=== PATIENT | female | born 1955 | race Asian ===

== ENCOUNTER 2017-09-09 12:55 | Outpatient (CLI) | payer OTHER ==
--- NOTE | 2017-09-10 09:13 | XRAY Report ---
EXAM: THREE VIEW RIGHT KNEE: 09/09/2017 CLINICAL INDICATION: Pain. FINDINGS: AP, lateral, sunrise views of the right knee demonstrate mild osteoarthritis, with small osteophytes. There is no evidence of acute fracture or dislocation. No effusion is present. IMPRESSION: MILD RIGHT KNEE OSTEOARTHRITIS. TD: 09/09/2017 16:20 [facility]
== END 2017-09-09 12:56 | disposition home or self-care (01) ==
LOC: DI 12:55
PROVIDERS: ATTEND Physician Assistant Medical
DX: M17.11 Unilateral primary osteoarthritis, right knee (principal)

== ENCOUNTER 2017-09-11 19:01 | Outpatient (CLI) | payer OTHER ==
--- NOTE | 2017-09-12 11:31 | Ultrasound Report ---
DATE OF SERVICE: 09/11/2017 Physician: Jerry Gutierrez MD PELVIC ULTRASOUND: 09/11/2017 CLINICAL INDICATION: Pelvic pain. TECHNIQUE: Transabdominal pelvic ultrasound performed for global evaluation. Transvaginal pelvic ultrasound performed for detailed evaluation. Real-time scanning performed and static images obtained. FINDINGS: The uterus is anteverted, measuring 4.7 x 3.3 x 2.9 cm. The endometrial echo complex measures 4 mm. No focal myometrial lesion is seen. The ovaries are normal, with the right measuring 1.0 x 0.7 x 0.5 cm, and the left measuring 1.0 x 0.8 x 0.8 cm. No free fluid is present. IMPRESSION: NORMAL PELVIC ULTRASOUND. TD: 09/12/2017 12:26 MTDD
== END 2017-09-11 19:02 | disposition home or self-care (01) ==
LOC: DI 19:01
PROVIDERS: ATTEND Physician Assistant Medical
DX: R10.2 Pelvic and perineal pain (principal)
CPT/HCPCS: 76830; 76856

== ENCOUNTER 2017-09-30 13:33 | Outpatient (CLI) | payer OTHER ==
--- NOTE | 2017-10-02 15:47 | DEXA Report ---
DEXA SCAN: 09/30/2017 TECHNIQUE: Dual energy x-ray absorptiometry (DXA) was performed on a [employer] system. Regions measured are the AP spine, femoral neck, and, if needed, forearm. COMPARISON: None. In accordance with the International Society for Clinical Densitometry (ISCD) guidelines, data from previous exams may be reanalyzed using current recommendations and techniques. This is done to allow a more accurate basis for comparison with the current study. FINDINGS The data for the lumbar spine is as follows: REGION BMD (g/cm/cm) T-SCORE Z-SCORE L1 0.934 -1.6 0.0 L2 0.957 -2.0 -0.4 L3 1.082 -1.0 0.6 L4 1.302 0.8 2.5 TOTAL L1-L4 1.099 -0.7 0.9 NOTE: All evaluable vertebrae are used for classification. The data for the hip is as follows: REGION BMD (g/cm/cm) T-SCORE Z-SCORE Neck 0.689 -2.5 -1.0 TOTAL 0.793 -1.7 -0.5 NOTE: The femoral neck or total proximal femur, whichever is lowest, is used for classification. IMPRESSION THE WHO CLASSIFICATION BASED ON THE INTERNATIONAL REFERENCE STANDARD IS OSTEOPOROSIS (REFERENCE LEFT FEMORAL NECK). THE FRACTURE RISK IS HIGH. RECOMMENDATION: Patients with diagnosis of osteoporosis or osteopenia should have regular bone mineral density assessment. For those eligible for Medicare, routine testing is allowed once every 2 years. Testing frequency can be increased for patients who have rapidly progressing disease or for those who are receiving medical therapy to restore bone mass. COMMENT: World Health Organization (WHO) definitions for osteoporosis and osteopenia: NORMAL BMD: T-score at 1.0 or higher, fracture risk is low. OSTEOPENIA BMD: T-score between 1.0 and -2.5, fracture risk is increased. OSTEOPOROSIS BMD: T-score at 2.5 or lower, fracture risk high. National Osteoporosis Foundation recommends: 1. Obtain adequate dietary calcium (at least 1200 mg per day) and vitamin D (400 -800 international units per day). 2. Participate, as appropriate, in regular weightbearing and muscle- strengthening exercise. 3. Avoid tobacco use and reduce alcohol and caffeine intake. 4. For more detailed information see the website at www.NOF.org. TD: 09/30/2017 16:39 RAMÓN
== END 2017-09-30 13:34 | disposition home or self-care (01) ==
LOC: DI 13:33
PROVIDERS: ATTEND Physician Assistant Medical
DX: Z13.820 Encounter for screening for osteoporosis (principal); M81.0 Age-related osteoporosis without current pathological fracture
CPT/HCPCS: 77080

== ENCOUNTER 2017-10-09 08:00 | Outpatient (CLI) | payer OTHER | END 2017-10-09 08:01 | disposition home or self-care (01) | LOC: LAB.R 08:00 | PROVIDERS: ATTEND Registered Nurse | DX: N76.0 Acute vaginitis (principal) | CPT/HCPCS: 87070; 87491; 87591 ==

== ENCOUNTER 2018-11-03 13:15 | Outpatient (CLI) | payer OTHER ==
--- NOTE | 2018-11-03 17:15 | Mammography Report ---
Reason: SCREENING Procedure Date: 11/03/2018 Accession Number: [id number] / [id number] Procedure: MGN - Screening Mammo Dig Bilat CPT Code: FULL RESULT: EXAM: Screening Mammo Dig Bilat DATE: 11/03/2018 1:30 PM CLINICAL HISTORY: Routine screening TECHNIQUE: Bilateral CC and MLO views were obtained. COMPARISON: 12/23/2015, 12/21/2015, 04/21/2014 FINDINGS: The breast tissue is heterogeneously dense. No suspicious masses, clustered microcalcifications, or regions of architectural distortion are identified. A few punctate calcifications are stable. IMPRESSION: Benign findings RECOMMENDATION: Routine annual screening unless otherwise clinically indicated. BIRADS CATEGORY 2: Benign findings STANDARD QUALIFYING STATEMENTS: 1. This examination was reviewed with the aid of Computer-Aided Detection (CAD). 2. A negative or benign imaging report should not delay biopsy if clinically suspicious findings are present. Consider surgical consultation if warrented. More than 5% of cancers are not identified by imaging. 3. Dense breasts may obscure an underlying neoplasm.
== END 2018-11-03 13:16 | disposition home or self-care (01) ==
LOC: DI.N 13:15
DX: Z12.31 Encounter for screening mammogram for malignant neoplasm of breast (principal)
CPT/HCPCS: 77067

== ENCOUNTER 2019-01-20 10:08 | Outpatient (CLI) | payer OTHER | END 2019-01-20 10:09 | disposition home or self-care (01) | LOC: RT 10:08 | PROVIDERS: ATTEND Obstetrics & Gynecology | DX: Z01.812 Encounter for preprocedural laboratory examination (principal); N87.0 Mild cervical dysplasia; N89.5 Stricture and atresia of vagina; N95.2 Postmenopausal atrophic vaginitis | CPT/HCPCS: 93005 ==

== ENCOUNTER 2019-01-21 11:06 | Day surgery (SDC) | payer OTHER ==
[2019-01-21] MEDS ORDERED: LACTATED RINGERS 1,000 ML IV ONE (11:38)
--- NOTE | 2019-01-21 12:00 | ANESTHESIA ---
Pre-Anesthesia VS, & Labs - Diagnosis cervical dysplasia, SHERRY I - Procedure LEEP Vital Signs: Temp Pulse Resp BP Pulse Ox 36.0 C L 53 L 15 179/80 H 100 01/21/19 11:20 01/21/19 11:20 01/21/19 11:20 01/21/19 11:20 01/21/19 11:20 Height 4 ft 10 in Weight (kg) 53 kg Body Mass Index 24.3 - NPO >8 hours - Is Patient ?: No Home Medications and Allergies Home Medications: Ambulatory Orders Calcium Citrate/Vitamin D3 [Calcium Cit 200-Vit D3 250 Tab] 1 each PO DAILY 01/20/19 Cholecalciferol (Vitamin D3) [Vitamin D3] 1,000 unit PO DAILY 01/20/19 Estradiol [Estrace] 1 gm VG ONCE 01/20/19 [place]-3/Dha/Epa/Fish Oil [Fish Oil 1,000 mg Softgel] 1 each PO DAILY 01/20/19 Losartan Potassium 50 mg PO BID 12/04/17 Multivitamin [Multivitamins] 1 each PO DAILY 12/04/17 Calcium Citrate/Vitamin D3 [Calcium Cit 200-Vit D3 250 Tab] 1 each PO DAILY 01/20/19 Cholecalciferol (Vitamin D3) [Vitamin D3] 1,000 unit PO DAILY 01/20/19 Estradiol [Estrace] 1 gm VG ONCE 01/20/19 [place]-3/Dha/Epa/Fish Oil [Fish Oil 1,000 mg Softgel] 1 each PO DAILY 01/20/19 Allergies/Adverse Reactions: Allergies Allergy/AdvReac Type Severity Reaction Status Date / Time alendronate sodium Allergy muscle Verified 01/21/19 11:40 [From Fosamax] pain and swelling Anes History & Medical History - Anesthetic History Anesthesia Complications: reports: No previous complications - Medical History Cardiovascular: reports: Hypertension Pulmonary: reports: None Gastrointestinal: reports: None Urinary: reports: None Neuro: reports: None Musculoskeletal: reports: Osteoarthritis Endocrine/Autoimmune: reports: None Blood Disorders: reports: None Skin: reports: None Smoking Status: Never smoker Psychosocial: reports: No issues indicated - Surgical History Gynecologic: Other (breast biopsy) Orthopedic: Other (Armaan ORIF forearms) Exam General: Alert, Oriented x3, Cooperative, No acute distress Dental: Dentures full Upper Mouth Openin Fingerbreadth Neck Mobility: Normal Mallampati classification: I Thyromental Distance: 4-6 cm Respiratory: Lungs clear, Normal breath sounds, No respiratory distress, No accessory muscle use Cardiovascular: Regular rate, Normal S1, Normal S2, No murmurs Mental/Cognitive Status: Alert/Oriented X3, Normal for patient Plan Anesthesia Type: General Consent for Procedure(s) Verified and Reviewed: Yes Code Status: Attempt Resuscitation ASA classification: 2-Mild systemic disease Is this case an emergency?: No
[2019-01-21] MEDS ORDERED: BUPIVACAINE 0.5%-EPI 1:200000 PF 30 ML VIAL ONE (13:19)
[2019-01-21] MEDS ORDERED: KETOROLAC 30 MG/ML VIAL IVP ONE (14:02)
[2019-01-21] MEDS ORDERED: ONDANSETRON 4 MG/2 ML VIAL IVP ONE (14:02)
[2019-01-21] MEDS ORDERED: PROPOFOL 200 MG/20 ML VIAL IVP ONE (14:02)
[2019-01-21] MEDS ORDERED: fentaNYL 100 MCG/2 ML VIAL IVP ONE (14:02)
[2019-01-21] MEDS ORDERED: MIDAZOLAM 2 MG/2 ML VIAL IVP ONE (14:02)
[2019-01-21] MEDS ORDERED: diphenhydrAMINE INJ 50 MG/ML VIAL IVP ONE (14:02)
[2019-01-21] MEDS ORDERED: ONDANSETRON 4 MG/2 ML VIAL IVP PRN (14:52)
[2019-01-21] MEDS ORDERED: oxyCODONE 5 MG TABLET PO PRN (14:52)
[2019-01-21] MEDS ORDERED: HYDROmorphone 0.5 MG/0.5 ML SYRINGE IVP PRN (14:52)
--- NOTE | 2019-01-21 14:55 | Discharge Plan ---
Discharge Plan Disposition: 01 Home, Self Care Condition: Good Diet: Regular Activity Restrictions: Nothing in the vagina Shower Restrictions: No Driving Restrictions: Yes (Not for 24 hours) Additional Instructions or Follow Up instructions: Nothing in the vagina for 4 weeks Take it easy today. OK to work after you've been awake for 24 hours. Call the clinic to speak with the nurse or with the doctor after hours if you have... --Bleeding soaking through a pad or more an hour for 4 hours. --Fevers, increasing pain, foul discharge Expect... --Light bleeding --Soreness at the vaginal opening --Discharge that looks black and clumpy No Smoking: If you smoke, Please STOP! Call for help. Follow-up with: Brittany Bobby MD [Provider Admit Priv/Credential] -
--- NOTE | 2019-01-21 14:58 | OPERATIVE REPORT ---
Operative Report - General Procedure Date: 01/21/19 Planned Procedure: LEEP Pre-Op Diagnosis: Cervical dysplasia Procedure Performed: LEEP Post Op Diagnosis: cervical dysplasia - Procedure Note Primary Surgeon: Kanu Secondary Surgeon: jethro Anesthesia Technique: General LMA Pathology: LEEP, LEEP right, endocervical curettage IV Fluids (mL): 600 Estimated Blood Loss (mL): 20 Urine Output (mL): 0 Findings: cervix adherent to vaginal sidewalls Complications: none
[2019-01-21 15:37] VITALS: BP 147/80
--- NOTE | 2019-01-21 16:02 | OPERATIVE REPORT ---
DATE OF SERVICE: 01/21/2019 Physician: Brittany Bobby MD PREOPERATIVE DIAGNOSES 1. Cervical dysplasia. 2. CIN1, endocervical curettage. 3. Unsatisfactory colposcopy. 4. Vaginal adhesions to the cervix. 5. Atrophic vaginitis. POSTOPERATIVE DIAGNOSES 1. Cervical dysplasia. 2. CIN1, endocervical curettage. 3. Unsatisfactory colposcopy. PROCEDURE PERFORMED: LEEP excision of the cervix. SURGEON: Brittany Bobby MD SEA[employer]OD SERVICE TEAM MEMBER: None. ANESTHESIA: General. ESTIMATED BLOOD LOSS: 20 mL INTRAVENOUS FLUIDS: 600 mL URINE OUTPUT: None. COUNTS: Correct x2. COMPLICATIONS: None apparent. DISPOSITION: Stable to recovery room. PROPHYLAXIS: Sequential compression devices and MINI hose to the bilateral lower extremities. No ant ibiotics indicated. FINDINGS: The cervix was flush with the vagina with adhesions from the patient's right vagina to the cervix. The cervical os was displaced to the patient's left. DESCRIPTION OF PROCEDURE: The patient was brought to the operating room, where she was induced with general anesthesia. The procedure was performed in the operating room due to her distorted anatomy a nd a history of prior excisional procedures. Bimanual examination revealed an axial uterus. Ultraso und confirmed an axial uterus and then axial cervical orientation. A coated speculum was placed. Th e cervix was difficult to identify because it is flush with the vaginal mccann. The cervical os was f ound with very small cervical dilator. A tenaculum could not be applied due to the flush nature of t he cervix. Using the speculum to fix the cervix as cranially as possible to limit cervical motion, a n intracervical and paracervical block were performed. Marcaine 0.5% 10 mL with epinephrine were use d for both of these. The 1 x 1 cm loop electrode was chosen. On a cut setting of 40, the loop was i nserted through the cervical tissue, dragged across the os and then removed inferiorly. A good whole specimen was sent to pathology and this did contain the cervical os. The patient had some more cerv ical tissue on the patient's right-hand side. This was confirmed with pickups and placed on the firm er cervical tissue. A second pass with a small electrode was performed on the right side of the cerv ix. An endocervical curettage was performed. Hemostasis was achieved with a rollerball on coagulati on. Monsel's was applied. Digital exam postprocedure confirmed the absence of lacerations of the va karen or inadvertent entry into the peritoneal cavity. Good excision of the cervix was confirmed fermín fuentes. TD: 01/21/2019 15:18
== END 2019-01-21 11:07 | disposition home or self-care (01) ==
LOC: SDS 11:06
PROVIDERS: ATTEND Obstetrics & Gynecology
PROC: 0UBC7ZX Excision of Cervix, Via Natural or Artificial Opening, Diagnostic (ICD-10-PCS; principal; 2019-01-21 13:30)
DX: N87.0 Mild cervical dysplasia (principal); N95.2 Postmenopausal atrophic vaginitis; I10 Essential (primary) hypertension; M85.80 Other specified disorders of bone density and structure, unspecified site
CPT/HCPCS: 57522; J1200; J7120

== ENCOUNTER 2019-04-22 | Outpatient (CLI) | payer OTHER | END 2019-04-22 11:05 | disposition home or self-care (01) | DX: M85.88 Other specified disorders of bone density and structure, other site (principal) | CPT/HCPCS: 77080 ==

== ENCOUNTER 2019-10-01 13:27 | Emergency (ER) | payer OTHER ==
[2019-10-01 13:36] VITALS: BP 149/74
--- NOTE | 2019-10-01 13:47 | ED Physician Documentation ---
PD HPI URI - Stated complaint Stated Complaint: COLD/COUGH - Chief complaint Chief Complaint: Resp - History obtained from History obtained from: Patient - History of Present Illness Timing - onset: How many weeks ago (2) Timing duration: Weeks (2) Timing details: Gradual onset Pain level max: 0 Pain level now: 0 Associated symptoms: Nasal congestion, Rhinorrhea, Dry cough. No: Fever, Chills, Sore throat, Chest pain, NVD Contributing factors: Sick contact Improves by: Rest Worsened by: Activity, Breathing Review of Systems Constitutional: denies: Fever, Chills GI: denies: Vomiting, Diarrhea Skin: denies: Rash Musculoskeletal: denies: Neck pain, Back pain Neurologic: denies: Headache PD PAST MEDICAL HISTORY - Past Medical History Cardiovascular: Hypertension Respiratory: None Neuro: None Endocrine/Autoimmune: None GI: None : None HEENT: Chronic vision loss Psych: None Musculoskeletal: Osteoarthritis Derm: None - Past Surgical History Ortho: Other (Armaan ORIF forearms) /MANAGER SOLAR: Other (breast biopsy) - Present Medications Home Medications: Ambulatory Orders Medication Instructions Recorded Confirmed Losartan Potassium 50 mg PO BID 12/04/17 01/21/19 Multivitamin [Multivitamins] 1 each PO DAILY 12/04/17 01/21/19 Calcium Citrate/Vitamin D3 1 each PO DAILY 01/20/19 01/21/19 [Calcium Cit 200-Vit D3 250 Tab] Cholecalciferol (Vitamin D3) 1,000 unit PO DAILY 01/20/19 01/21/19 [Vitamin D3] Estradiol [Estrace] 1 gm VG ONCE 01/20/19 01/21/19 [place]-3/Dha/Epa/Fish Oil [Fish Oil 1 each PO DAILY 01/20/19 01/21/19 1,000 mg Softgel] Benzonatate [Tessalon Perle] 100 - 200 mg PO TID PRN #30 capsule 10/01/19 - Allergies Allergies/Adverse Reactions: Allergies Allergy/AdvReac Type Severity Reaction Status Date / Time alendronate sodium Allergy muscle Verified 10/01/19 13:36 [From Fosamax] pain and swelling - Social History Smoking Status: Never smoker PD ED PE NORMAL - Vitals Vital signs reviewed: Yes - General General: Alert and oriented X 3, No acute distress, Well developed/nourished - HEENT HEENT: PERRL, Ears normal, Moist mucous membranes, Pharynx benign - Neck Neck: Supple, no meningeal sign - Cardiac Cardiac: RRR, Strong equal pulses - Respiratory Respiratory: No respiratory distress, Clear bilaterally - Abdomen Abdomen: Soft, Non tender, Non distended - Derm Derm: Warm and dry, No rash - Neuro Neuro: Alert and oriented X 3 - Psych Psych: Normal mood, Normal affect Results - Vitals Vitals: Vital Signs - 24 hr 10/01/19 13:32 Temperature 37.5 C Heart Rate 56 L Respiratory 18 Rate Blood Pressure 149/74 H O2 Saturation 97 Oxygen O2 Source Room air PD MEDICAL DECISION MAKING - ED course Complexity details: considered differential, d/w patient, d/w family ED course: Patient is well-appearing, nontoxic. Afebrile. No hypoxia. She appears to have a viral upper respiratory infection. No fevers. Lungs are clear to auscultation bilaterally. No evidence of pneumonia. We will continue supportive care and have her follow-up with her doctor. Patient and family counseled regarding signs and symptoms for which I believe and urgent re- evaluation would be necessary. Patient with good understanding of and agreement to plan and is comfortable going home at this time This document was made in part using voice recognition software. While efforts are made to proofread this document, sound alike and grammatical errors may occur. Departure - Departure Disposition: 01 Home, Self Care Clinical Impression: Upper respiratory tract infection Qualifiers: URI type: unspecified viral URI Qualified Code(s): J06.9 - Acute upper respiratory infection, unspecified Condition: Good Instructions: ED URI Viral Follow-Up: your,doctor in 1 week [Other] Prescriptions: Benzonatate [Tessalon Perle] 100 - 200 mg PO TID PRN #30 capsule PRN Reason: Cough Comments: Drink plenty fluids. Return if you worsen. This should improve over the next week.
== END 2019-10-01 13:50 | disposition home or self-care (01) ==
LOC: ED 13:27
DX: J06.9 Acute upper respiratory infection, unspecified (principal); I10 Essential (primary) hypertension; Z79.899 Other long term (current) drug therapy
CPT/HCPCS: 99282; 99284

== ENCOUNTER 2020-09-17 11:24 | Emergency (ER) | payer OTHER ==
[2020-09-17 11:30] VITALS: BP 148/75
--- NOTE | 2020-09-17 13:28 | ED Physician Documentation ---
History of Present Illness - Stated complaint Stated Complaint: FACE SWELLING - Chief complaint Chief Complaint: General - History obtained from History obtained from: Patient - Additonal information Additional information: 65-year-old female presents the emergency department for evaluation of bilateral periorbital facial swelling that she noticed 2 mornings ago when she woke up. There is mild erythema. Some pruritus but no pain. No fevers. No difficulty with swallow. No trismus. No tongue or lip swelling. No cough or congestion. denies excessive tearing, matting on her lashes in the am, vision changes. She has taken Benadryl and it does reduce the swelling for short time before it returns again. She denies any new soaps lotions or products. She does use an [id number] face wash and is use the same brand for many years. No history of similar. PMH: hypertension Meds: Losartan Review of Systems Constitutional: reports: Reviewed and negative Eyes: reports: Other (Bilateral periorbital facial swelling) Ears: reports: Reviewed and negative Nose: reports: Reviewed and negative Throat: denies: Oral lesions / sores, Sore throat, Swollen tonsils, Swallowed foreign body Cardiac: denies: Chest pain / pressure, Palpitations, Pedal edema Respiratory: denies: Dyspnea, Cough, Hemoptysis GI: denies: Abdominal Pain, Abdominal Swelling, Nausea : reports: Reviewed and negative Skin: reports: Reviewed and negative Musculoskeletal: reports: Reviewed and negative PD PAST MEDICAL HISTORY - Past Medical History Past Medical History: Yes Cardiovascular: Hypertension Respiratory: None Neuro: None Endocrine/Autoimmune: None GI: None SUPERVISOR TITLE: None : None HEENT: Chronic vision loss Psych: None Musculoskeletal: Osteoarthritis Derm: None - Past Surgical History Past Surgical History: Yes Ortho: Other /SUPERVISOR TITLE: Other - Present Medications Home Medications: Ambulatory Orders Medication Instructions Recorded Confirmed Losartan Potassium 50 mg PO BID 12/04/17 01/21/19 Multivitamin [Multivitamins] 1 each PO DAILY 12/04/17 01/21/19 Calcium Citrate/Vitamin D3 1 each PO DAILY 01/20/19 01/21/19 [Calcium Cit 200-Vit D3 250 Tab] Cholecalciferol (Vitamin D3) 1,000 unit PO DAILY 01/20/19 01/21/19 [Vitamin D3] Estradiol [Estrace] 1 gm VG ONCE 01/20/19 01/21/19 [place]-3/Dha/Epa/Fish Oil [Fish Oil 1 each PO DAILY 01/20/19 01/21/19 1,000 mg Softgel] Benzonatate [Tessalon Perle] 100 - 200 mg PO TID PRN #30 capsule 10/01/19 predniSONE [Deltasone] 40 mg PO DAILY 4 Days #8 tab 09/17/20 - Allergies Allergies/Adverse Reactions: Allergies Allergy/AdvReac Type Severity Reaction Status Date / Time alendronate sodium Allergy muscle Verified 09/17/20 11:28 [From Fosamax] pain and swelling - Social History Does the pt smoke?: No Smoking Status: Never smoker Does the pt drink ETOH?: Yes ETOH Use: Beer Does the pt have substance abuse?: No - Immunizations Immunizations are current?: Yes - POLST Patient has POLST: No PD ED PE EXPANDED - General General: Alert, No acute distress, Well developed/nourished - HEENT HEENT: Atraumatic, PERRL, EOMI, Other (Bilateral mild nonpitting periorbital facial swelling. Scant amount of erythema. No drainage or fluctuance. No tenderness with palpation. Swelling extends from the eye brows to just below the eyes. No extension to the cheeks mouth or lips.) Results - Vitals Vitals: Vital Signs - 24 hr 09/17/20 11:28 Temperature 36.9 C Heart Rate 61 Respiratory 18 Rate Blood Pressure 148/75 H O2 Saturation 100 Oxygen O2 Source Room air PD MEDICAL DECISION MAKING - ED course Complexity details: reviewed results, re-evaluated patient, considered differential ED course: 65-year-old female presents the emergency department for evaluation of 2 days bilateral periorbital facial swelling. There are no fevers or significant erythema. Swelling is not painful. My suspicion at this time is low for bacterial infection. Patient has had some improvement using Benadryl at home. She may be having a reaction to the longtime face wash that she is used if the formulation has changed in any way. I have advised her to discontinue using the facial wash begin using a hypoallergenic one instead. Will recommend that she continue taking the Benadryl twice daily and I will prescribe a 4-day burst of prednisone. Reassuringly there is no signs of airway compromise, trismus or Crow Gareth Wen. Emergent and worrisome return precautions discussed or return for failure of symptoms to resolve Departure - Departure Disposition: 01 Home, Self Care Clinical Impression: Facial swelling Condition: Stable Record reviewed to determine appropriate education?: Yes Prescriptions: predniSONE [Deltasone] 40 mg PO DAILY 4 Days #8 tab Comments: Dory the swelling on your face appears to be an allergic reaction at this time. I recommend that you discontinue the face wash that you are using and begin using one labeled as hypoallergenic. I would like you to continue to take the Benadryl twice daily. I have prescribed a 4-day course of oral steroids. If you find that the swelling is not improving, you develop high fevers, have painful swelling or any other emergent concerns please return immediately to the ER.
== END 2020-09-17 13:44 | disposition home or self-care (01) ==
LOC: ED 11:24
DX: R22.0 Localized swelling, mass and lump, head (principal); L53.9 Erythematous condition, unspecified; I10 Essential (primary) hypertension
CPT/HCPCS: 99282; 99283

== ENCOUNTER 2020-10-09 14:11 | Outpatient (CLI) | payer OTHER ==
--- NOTE | 2020-10-09 16:02 | Ultrasound Report ---
PROCEDURE: Duplex Ext Veins Left INDICATIONS: LEFT CALF PAIN TECHNIQUE: Real-time imaging, as well as color and pulse Doppler interrogation, were performed of the lower extr emity deep veins from the inguinal ligament to the popliteal fossa. COMPARISON: None. FINDINGS: The deep veins are normally compressible, and free of intraluminal thrombus. Color and pu lse Doppler demonstrate normal phasic intraluminal flow. There is normal augmentation response to di stal compression maneuver. IMPRESSION: No findings of deep venous thrombosis are seen. Reviewed by: Keyon Olivas MD on 10/09/2020 3:01 PM [facility] Approved by: Keyon Olivas MD on 10/09/2020 3:01 PM [facility] Station ID: [id number]
== END 2020-10-09 14:12 | disposition home or self-care (01) ==
LOC: DI 14:11
PROVIDERS: ATTEND Family Medicine
DX: M79.662 Pain in left lower leg (principal)

== ENCOUNTER 2020-11-17 08:05 | Outpatient (CLI) | payer OTHER ==
--- NOTE | 2020-11-17 14:53 | DEXA Report ---
PROCEDURE: Dexa Spine and/or Hip INDICATIONS: POST MENOPAUSAL TECHNIQUE: Dual energy x-ray absorptiometry (DXA) was performed on a [employer] System. Regions measur ed are the AP Spine, femoral neck, and if needed forearm. COMPARISON: DEXA 04/22/2019 FINDINGS: Lumbar Spine: Bone Mineral Density 1.113 g/cm/cm,T score -0.6, compared to -0.4 Left Hip: Bone Mineral Density 0.809 g/cm/cm,T score -1.6, compared to -1.1 Left Femoral Neck: Bone Mineral Density 0.675 g/cm/cm, T score -2.6, compared to -2.1 (T score greater or equal to -1.0: NORMAL) (T score from -1.1 to -2.4: OSTEOPENIA) (T score less than or equal to -2.5 to: OSTEOPOROSIS) Impression: Progressive osteopenia within the left hip and now osteoporosis within the left femoral n roderick. Patients with diagnosis of osteoporosis or osteopenia should have regular bone mineral density assess ment. For those eligible for Medicare, routine testing is allowed once every 2 years. Testing frequ ency can be increased for patients who have rapidly progressing disease or for those who are receivin g medical therapy to restore bone mass. Reviewed by: Anahi Francis MD on 11/17/2020 1:52 PM [facility] Approved by: Anahi Francis MD on 11/17/2020 1:52 PM [facility] Station ID: [id number]
== END 2020-11-17 08:06 | disposition home or self-care (01) ==
LOC: DI 08:05
PROVIDERS: ATTEND Physician Assistant Medical
DX: M81.0 Age-related osteoporosis without current pathological fracture (principal); Z78.0 Asymptomatic menopausal state

== ENCOUNTER 2020-11-24 13:24 | Outpatient (CLI) | payer OTHER ==
--- NOTE | 2020-11-25 11:43 | Mammography Report ---
BILATERAL DIGITAL SCREENING MAMMOGRAM 3D/2D: 11/24/2020 CLINICAL: Routine screening. Comparison is made to exams dated: 11/03/2018 mammogram, 12/21/2015 mammogram, 04/21/2014 mammogram, an d 08/28/2011 mammogram - [facility]. The tissue of both breasts is predominantly fa tty. No significant masses, calcifications, or other findings are seen in either breast. There has been no significant interval change. IMPRESSION: NEGATIVE There is no mammographic evidence of malignancy. A 1 year screening mammogram is recommended. This exam was interpreted at Station ID: [id number]. NOTE: For mammograms, a report in lay terms will be sent to the patient. Approximately 15% of breast malignancies will not be visualized mammographically. In the management of a palpable breast mass, a negative mammogram must not discourage biopsy of a clinically suspicious lesion. Electronically Signed By: Jonny Osorio acr/penrad:11/24/2020 13:56:15 ACR BI-RADS Category 1: Negative 3341F PARENCHYMAL PATTERN: (F) - The breast(s) demonstrate(s) diffuse fatty replacement. BI-RADS CATEGORY: (1) - 1 RECOMMENDATION: (ANNUAL) - Recommend routine annual screening mammography. [id number] 1 year screening LATERALITY: (B)
== END 2020-11-24 13:25 | disposition home or self-care (01) ==
LOC: DI.N 13:24
DX: Z12.31 Encounter for screening mammogram for malignant neoplasm of breast (principal)

== ENCOUNTER 2021-01-12 11:31 | Day surgery (SDC) | payer OTHER ==
[2021-01-12] MEDS ORDERED: LACTATED RINGERS 1,000 ML IV ONE ×2 (11:58→13:19)
[2021-01-12] MEDS ORDERED: fentaNYL 250 MCG/5 ML VIAL ONE (12:51)
[2021-01-12] MEDS ORDERED: MIDAZOLAM 2 MG/2 ML VIAL ONE ×3 (12:51→12:53)
[2021-01-12 13:56] VITALS: BP 154/72
== END 2021-01-12 11:32 | disposition home or self-care (01) ==
LOC: SDS 11:31
PROVIDERS: ATTEND Surgery
DX: Z12.11 Encounter for screening for malignant neoplasm of colon (principal); K64.8 Other hemorrhoids; K64.4 Residual hemorrhoidal skin tags; K57.30 Diverticulosis of large intestine without perforation or abscess without bleeding; I10 Essential (primary) hypertension
CPT/HCPCS: 45378; J3010; J7120

== ENCOUNTER 2022-01-04 14:33 | Outpatient (CLI) | payer OTHER ==
--- NOTE | 2022-01-08 16:36 | Mammography Report ---
BILATERAL DIGITAL SCREENING MAMMOGRAM 3D/2D: 01/04/2022 CLINICAL: Family history of breast cancer. Routine screening. Comparison is made to exams dated: 11/24/2020 mammogram, 11/03/2018 mammogram, and 12/21/2015 mammogram - [facility]. The tissue of both breasts is heterogeneously dense. This may lower the sensitivity of mammography. No significant masses, calcifications, or other findings are seen in either breast. There has been no significant interval change. IMPRESSION: NEGATIVE There is no mammographic evidence of malignancy. A 1 year screening mammogram is recommended. This exam was interpreted at Station ID: [id number]. NOTE: For mammograms, a report in lay terms will be sent to the patient. Approximately 15% of breast malignancies will not be visualized mammographically. In the management of a palpable breast mass, a negative mammogram must not discourage biopsy of a clinically suspicious lesion. Electronically Signed By: Bianka Carrington M.D. [email or web address]/penrad:01/04/2022 16:35:35 ACR BI-RADS Category 1: Negative 3341F PARENCHYMAL PATTERN: (D) - The breast(s) demonstrate(s) heterogeneously dense fibroglandular zeinab wallis. BI-RADS CATEGORY: (1) - 1 RECOMMENDATION: (ANNUAL) - Recommend routine annual screening mammography. [id number] 1 year screening LATERALITY: (B)
== END 2022-01-04 14:34 | disposition home or self-care (01) ==
LOC: DI.N 14:33
DX: Z12.31 Encounter for screening mammogram for malignant neoplasm of breast (principal); Z80.3 Family history of malignant neoplasm of breast

== ENCOUNTER 2022-01-10 16:43 | Outpatient (CLI) | payer OTHER ==
--- NOTE | 2022-01-11 09:51 | Ultrasound Report ---
PROCEDURE: Pelvic w/Transvaginal INDICATIONS: POST MENOPAUSAL DISCHARGE TECHNIQUE: Real-time scanning was performed of the pelvic organs, with image documentation. Additional endovagi nal scanning was necessary due to incomplete visualization of the adnexal and endometrial structures by transabdominal scanning. COMPARISON: 09/11/2017 FINDINGS: Uterus: Uterus is slightly anteverted and normal in size at 5.3 x 2.4 x 3.3 cm. The endometrium rosa maria sures approximately 6 mm in combined thickness. Myometrial echotexture is diffusely heterogeneous. T iny round hypoechogenicity in the left fundus measures 8 mm. No other discrete mass. The cervix is no rmal and contains a few tiny nabothian cysts. Ovaries: Neither ovary was seen. No suspicious adnexal masses. Other: No free pelvic fluid. IMPRESSION: 1. Borderline thickened endometrium for postmenopausal female. If there is true bleeding, tissue acqu isition would be recommended. If there is nonbloody discharge, this may be within normal limits. 2. No suspicious change in the uterus compared to the prior study. 3. Nonvisualization of either ovary. Reviewed by: Bianka Carrington MD on 01/11/2022 9:50 AM PDT Approved by: Bianka Carrington MD on 01/11/2022 9:50 AM PDT Station ID: [id number]
== END 2022-01-10 16:44 | disposition home or self-care (01) ==
LOC: DI 16:43
PROVIDERS: ATTEND Obstetrics & Gynecology
DX: N72 Inflammatory disease of cervix uteri (principal); Z78.0 Asymptomatic menopausal state

== ENCOUNTER 2022-02-11 08:00 | Outpatient (CLI) | payer OTHER, MEDICARE ==
--- NOTE | 2023-02-12 09:52 | XRAY Report ---
PROCEDURE: Knee 2 View RT INDICATIONS: RIGHT KNEE PAIN TECHNIQUE: 2 views of the right knee(s) were acquired. COMPARISON: X-ray right knee, 12/25/2022, 09/09/2017. FINDINGS: Bones: No fractures or dislocations. No suspicious bony lesions. [id number] osteoarthritic changes are present bilaterally. Mild joint space narrowing with weightbearing in the lateral femorot ibial compartment. Soft tissues: No knee joint effusion. No suspicious soft tissue calcifications or masses. IMPRESSION: [id number] osteoarthritis. Reviewed by: Taylor Fournier MD on 02/12/2023 9:51 AM PDT Approved by: Taylor Fournier MD on 02/12/2023 9:51 AM PDT Station ID: [id number]
== END 2023-02-11 23:59 | disposition home or self-care (01) ==
LOC: DI.WOS 08:00
PROVIDERS: ATTEND Physician Assistant Surgical
DX: M17.11 Unilateral primary osteoarthritis, right knee (principal); S83.401D Sprain of unspecified collateral ligament of right knee, subsequent encounter

== ENCOUNTER 2022-11-09 10:14 | Outpatient (CLI) | payer MEDICARE, OTHER ==
--- NOTE | 2022-11-12 09:56 | Ultrasound Report ---
LIMITED ULTRASOUND OF LEFT BREAST: 11/09/2022 CLINICAL: Focal left breast pain. Comparison is made to exams dated: 11/09/2022 mammogram, 01/04/2022 mammogram, 11/24/2020 mammogram, 10/24 mammogram, 12/21/2015 mammogram, and 04/21/2014 mammogram - [facility]. Real-time ultrasound of the left breast 2 o'clock region was performed on the areas of interest. Gr ay scale images of the real-time examination were reviewed. IMPRESSION: NEGATIVE There is no sonographic evidence of malignancy. There is no mammographic or sonographic abnormality seen in the left breast to correspond with the pa in, however, clinical followup is recommended. A 1 year screening mammogram is recommended. This exam was interpreted at Station ID: [id number]. Electronically Signed By: Alis Johnson M.D. lk/:11/09/2022 11:23:12 Ultrasound BI-RADS: 1 Negative BI-RADS CATEGORY: (1) - 1 RECOMMENDATION: (ANNUAL) - Recommend routine annual screening mammography. [id number] 1 year screening LATERALITY: (B)
--- NOTE | 2022-11-12 09:56 | Mammography Report ---
BILATERAL DIGITAL DIAGNOSTIC MAMMOGRAM 3D/2D: 11/09/2022 CLINICAL: Focal left breast pain. Comparison is made to exams dated: 01/04/2022 mammogram, 11/24/2020 mammogram, 11/03/2018 mammogram, 11/23 mammogram, and 04/21/2014 mammogram - [facility]. Both breasts are heterogeneously dense, which may obscure small masses (category c / 51-75% glandular tissue). No significant masses, calcifications, or other findings are seen in either breast. IMPRESSION: INCOMPLETE: NEEDS ADDITIONAL IMAGING EVALUATION There is no mammographic abnormality seen in the left breast to correspond with the pain, however, ta rgeted ultrasound of the left breast is recommended and will be performed immediately following this exam. This exam was interpreted at Station ID: [id number]. NOTE: For mammograms, a report in lay terms will be sent to the patient. Approximately 15% of breast malignancies will not be visualized mammographically. In the management of a palpable breast mass, a negative mammogram must not discourage biopsy of a clinically suspicious lesion. Electronically Signed By: Alis Johnson M.D. lk/:11/09/2022 10:51:10 ACR BI-RADS Category 0: Incomplete 3340F PARENCHYMAL PATTERN: (D) - The breast(s) demonstrate(s) heterogeneously dense fibroglandular partejal wallis. BI-RADS CATEGORY: (0) - 0 Ultrasound [id number] Immediate follow-up LATERALITY: (B)
== END 2022-11-09 10:15 | disposition home or self-care (01) ==
LOC: DI 10:14
PROVIDERS: ATTEND Family Medicine
DX: N64.4 Mastodynia (principal)

== ENCOUNTER 2022-12-25 10:11 | Outpatient (CLI) | payer MEDICARE, OTHER ==
--- NOTE | 2022-12-25 11:56 | XRAY Report ---
PROCEDURE: Knee 3 View RT INDICATIONS: SPRAIN OF UNSPECIFIED COLLATERAL LIGAMENT OF RT KN TECHNIQUE: 3 views of the right knee(s) were acquired. COMPARISON: 09/09/2017 FINDINGS: Bones: No fractures or dislocations. No suspicious bony lesions. Stable findings of degenerative arthritis. Among other things, there is a osteophyte off of the articular surface of the right latera l femoral condyle, as well as tricompartment marginal osteophytes. Soft tissues: Trace effusion. No suspicious soft tissue calcifications or masses. IMPRESSION: Degenerative arthritis of the right knee, as before. Comment: An suspect internal derangement, knee MRI may be helpful. Reviewed by: Christo Nugent MD on 12/25/2022 11:55 AM PDT Approved by: Christo Nugent MD on 12/25/2022 11:55 AM PDT Station ID: [id number]
== END 2022-12-25 10:12 | disposition home or self-care (01) ==
LOC: DI 10:11
PROVIDERS: ATTEND Physician Assistant
DX: M17.11 Unilateral primary osteoarthritis, right knee (principal)

== ENCOUNTER 2023-02-23 10:38 | Outpatient (CLI) | payer OTHER, MEDICARE ==
--- NOTE | 2023-02-25 09:58 | MRI Report ---
PROCEDURE: KNEE WO - RT INDICATIONS: KNEE SPRIAN TECHNIQUE: Noncontrast sagittal PD fast spin echo and T2 fast spin echo with fat saturation, sagittal 3-D gradie nt sequence with fat saturation; coronal T1 spin echo and PD fast spin echo with fat saturation, and axial PD fast spin echo with fat saturation through the knee. COMPARISON: Radiograph 02/11/2023 FINDINGS: Image quality: Good Menisci Medial: Mild horizontal tear with an oblique component extending to the inferior surface of the poste rior horn and body. There is edema in the meniscocapsular junction. Lateral: Macerated appearance of the anterior horn of the lateral meniscus. There is a horizontal tea r extending to the body. Cruciate ligaments: Intact Medial structures MCL: Edema surrounds the MCL. Pes anserine tendons: Mild bursitis Semimembranosus: Intact Lateral structures LCL: Intact Biceps femoris: Intact IT band: Intact Popliteus tendon: Intact Anterior structures Extensor mechanism: Intact Fat pads: Mild edema in Hoffa's fat pad and quadriceps fat pad. Medial retinaculum: Intact. Trochlea: Unremarkable morphology. 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 Mild to moderate chondromalacia also seen in the medial compartment, without areas of saba bchondral edema. More significant chondromalacia is seen in the lateral compartment, with areas of ne ar full-thickness fissuring. In the central weightbearing lateral femoral condyle, there is a focal a theresa of full-thickness cartilage loss with marrow edema Joint space: Moderate effusion and synovitis, with tiny bits of debris. Shah's cyst: Moderate Shah's cyst. Soft tissues: No significant vascular or other soft tissue pathology. IMPRESSION: Mild to moderate osteoarthritis, with particular note of lateral compartment chondromalacia and centr al weightbearing lateral femoral condyle subchondral edema. Likely degenerative oblique tear of the body and posterior horn of the medial meniscus. Maceration of the anterior horn of the lateral meniscus with horizontal tear extending to the body. The cruciate l igaments are intact. Edema surrounds the medial collateral ligament and meniscocapsular junction. Mild pes anserine bursit is. Moderate joint effusion, small debris, synovitis, and Shah's cyst. Reviewed by: Morgan Mendosa MD on 02/25/2023 9:56 AM PDT Approved by: Morgan Mendosa MD on 02/25/2023 9:56 AM PDT Station ID: [id number]
== END 2023-02-23 10:39 | disposition home or self-care (01) ==
LOC: DI 10:38
PROVIDERS: ATTEND Family Medicine
DX: M17.11 Unilateral primary osteoarthritis, right knee (principal); M94.261 Chondromalacia, right knee; S83.281A Other tear of lateral meniscus, current injury, right knee, initial encounter; S83.241A Other tear of medial meniscus, current injury, right knee, initial encounter; M70.51 Other bursitis of knee, right knee; M25.461 Effusion, right knee; M71.21 Synovial cyst of popliteal space [Baker], right knee